=== PATIENT | female | born 1970 | race Caucasian/White ===

== ENCOUNTER 2018-04-19 16:14 | Emergency (ER) | payer OTHER ==
[2018-04-19] MEDS: ARIPiprazole 10 MG TAB PO (17:45)
[2018-04-19] MEDS: traZODone 50 MG TAB PO (17:45)
[2018-04-19] MEDS: LevoFLOXacin 750 MG TABLET PO (17:52)
[2018-04-19] MEDS: KETOROLAC TROMETHAMINE 10 MG TAB PO (17:52)
[2018-04-19] MEDS: CYCLOBENZAPRINE 10 MG TAB PO (17:52)
== END 2018-04-19 18:05 | disposition home or self-care (01) ==
LOC: M ED 16:14
DX: J06.9 Acute upper respiratory infection, unspecified (principal); F31.9 Bipolar disorder, unspecified; M54.5 Low back pain; I10 Essential (primary) hypertension; J44.9 Chronic obstructive pulmonary disease, unspecified; F41.9 Anxiety disorder, unspecified; M19.90 Unspecified osteoarthritis, unspecified site; F17.200 Nicotine dependence, unspecified, uncomplicated; Z88.0 Allergy status to penicillin; Z88.8 Allergy status to other drugs, medicaments and biological substances; Z87.01 Personal history of pneumonia (recurrent); Z91.018 Allergy to other foods; Z79.899 Other long term (current) drug therapy; Z79.52 Long term (current) use of systemic steroids
CPT/HCPCS: 99283

== ENCOUNTER 2018-07-03 11:35 | Emergency (ER) | payer OTHER ==
[2018-07-03] MEDS: ONDANSETRON 4MG/2ML VIAL (J2405) IV (12:25)
[2018-07-03] MEDS: KETOROLAC 60 MG/2 ML VIAL (J1885) IM ×2 (12:27→12:49)
[2018-07-03] MEDS: KETOROLAC 30 MG/ML VIAL (J1885) IV (12:29)
[2018-07-03 12:32] LABS: BASO # 0.1 10^3/uL (0.0-0.2); BASO % 0.7 % (0.0-1.0); EOS # 0.1 10^3/uL (0.0-0.50); EOS % 1.5 % (0.0-3.0); HEMOGLOBIN 13.6 g/dl (12.0-15.5); IMMATURE GRANULOCYTE % 0.5 % (0-3.0); LYMPH # 2.4 10^3/uL (1.5-4.5); LYMPH % 28.3 % (24.0-44.0); MEAN CORPUSCULAR HEMOGLOBIN 30.6 pg (27.0-33.0); MEAN CORPUSCULAR HGB CONC 33.2 g/dl (32.0-36.5); MEAN CORPUSCULAR VOLUME 92.1 fl (80.0-96.0); MONO # 0.4 10^3/uL (0.0-0.8); MONO % 4.4 % (0.0-5.0); NEUTROPHILS # 5.5 10^3/uL (1.8-7.7); NEUTROPHILS % 64.6 % (36.0-66.0); PLATELET COUNT, AUTOMATED 262 10^3/uL (150-450); RED BLOOD COUNT 4.45 10^6/uL (4.00-5.40); RED CELL DISTRIBUTION WIDTH 13.1 % (11.5-14.5); WHITE BLOOD COUNT 8.5 10^3/uL (4.0-10.0)
[2018-07-03 12:37] LABS: KETONE, URINE AUTO RFX NEGATIVE (NEGATIVE); LEUKOCYTE ESTERASE UR AUTO RFX NEGATIVE (NEGATIVE); MUCUS, URINE RFX SMALL (NEGATIVE); NITRITE, URINE AUTO RFX NEGATIVE (NEGATIVE); RBC, URINE AUTO RFX 2 /HPF (0-3); SPECIFIC GRAVITY UR AUTO RFX 1.005 (1.002-1.035); SQUAM EPITHELIAL CELL UR AURFX 0 /HPF (0-6); WBC, URINE AUTO RFX 1 /HPF (0-3)
[2018-07-03 13:01] LABS: ALBUMIN 3.4 GM/DL (3.2-5.2); ALBUMIN/GLOBULIN RATIO 0.92 (1.00-1.93); ALKALINE PHOSPHATASE 102 U/L (45-117); ALT/SGPT 20 U/L (12-78); ANION GAP 7 MEQ/L (8-16); AST/SGOT 13 U/L (7-37); BILIRUBIN,DIRECT < 0.1 MG/DL (0.0-0.2); BILIRUBIN,TOTAL 0.1 MG/DL (0.2-1.0); BLOOD UREA NITROGEN 5 MG/DL (7-18); CALCIUM LEVEL 8.6 MG/DL (8.5-10.1); CARBON DIOXIDE LEVEL 29 MEQ/L (21-32); CHLORIDE LEVEL 106 MEQ/L (98-107); CREATININE FOR GFR 0.61 MG/DL (0.55-1.30); GLOMERULAR FILTRATION RATE > 60.0 (>58); GLUCOSE, FASTING 96 MG/DL (70-100); POTASSIUM SERUM 3.9 MEQ/L (3.5-5.1); SODIUM LEVEL 142 MEQ/L (136-145); TOTAL PROTEIN 7.1 GM/DL (6.4-8.2)
== END 2018-07-03 13:57 | disposition home or self-care (01) ==
LOC: M ED 11:35
DX: I10 Essential (primary) hypertension (principal); M54.32 Sciatica, left side; R10.31 Right lower quadrant pain; R10.32 Left lower quadrant pain; F17.200 Nicotine dependence, unspecified, uncomplicated; Z79.890 Hormone replacement therapy; Z79.899 Other long term (current) drug therapy; Z88.0 Allergy status to penicillin; Z91.018 Allergy to other foods
CPT/HCPCS: J2405

== ENCOUNTER 2018-07-24 20:37 | Emergency (ER) | payer OTHER ==
[~2018-07-24] VITALS: Ht 162.6 cm; Wt 53.2 kg
[~2018-07-24 20:37] MED LIST: ABIL10TA9 PO; ARIP1TAB; BUTA-198; CYCL10TA PO; DIVA250T67; DOXY100C; ESTR3TA; GG/CODEINE; HYDR-3363; IBUP80TA PO; IPRATROPIUM/; KETO10TAB PO; LEVA750T7 PO; METH20TA29; METO1TAB87; ONDA8TAB8 PO; PRED20TA; ROPI0.5T; TRAM50TA2; TRAZ-160; TRAZ-160 PO; VENTAER
[2018-07-24] MEDS ORDERED: KETOROLAC 30 MG/ML VIAL (J1885) IV ONE (21:30)
[2018-07-24] MEDS ORDERED: NS 1,000 ML IV ONE (21:30)
[2018-07-24 21:36] LABS: HEMATOCRIT 40.2 % (36.0-47.0); HEMOGLOBIN 13.7 g/dl (12.0-15.5); MEAN CORPUSCULAR HEMOGLOBIN 30.2 pg (27.0-33.0); MEAN CORPUSCULAR HGB CONC 34.1 g/dl (32.0-36.5); MEAN CORPUSCULAR VOLUME 88.5 fl (80.0-96.0); PLATELET COUNT, AUTOMATED 311 10^3/uL (150-450); RED BLOOD COUNT 4.54 10^6/uL (4.00-5.40)
[2018-07-24 21:40] LABS: WHITE BLOOD COUNT 11.7 10^3/uL (4.0-10.0)
[2018-07-24 21:44] LABS: BLOOD UREA NITROGEN 8 MG/DL (7-18); CALCIUM LEVEL 8.9 MG/DL (8.5-10.1); CARBON DIOXIDE LEVEL 25 MEQ/L (21-32); CHLORIDE LEVEL 109 MEQ/L (98-107); CREATININE FOR GFR 0.52 MG/DL (0.55-1.30); GLOMERULAR FILTRATION RATE > 60.0 (>58); GLUCOSE, FASTING 105 MG/DL (70-100); POTASSIUM SERUM 3.9 MEQ/L (3.5-5.1); SODIUM LEVEL 141 MEQ/L (136-145)
[2018-07-24] MEDS ORDERED: METOCLOPRAMIDE INJ 10MG/2ML VIAL (J2765) IV ONE (22:00)
[2018-07-24 22:03] LABS: BASOPHILS 1 % (0-4); EOSINOPHILS 2 % (0-5); LYMPHOCYTES 49 % (16-52); MONOCYTES 5 % (0-8); NEUTROPHILS 43 % (35-75); PLATELET ESTIMATE NORMAL (NORMAL)
--- NOTE | 2018-07-24 22:52 | REPVR ---
EXAM: CT Head Without Contrast EXAM DATE/TIME: 07/24/2018 10:18 PM CLINICAL HISTORY: 47 years old, female; Pain; Headache; Headache not specified; Additional info: Intractable headache TECHNIQUE: Axial computed tomography images of the head/brain without contrast. All CT scans at this facility use at least one of these dose optimization techniques: automated exposure control; mA and/or kV adjustment per patient size (includes targeted exams where dose is matched to clinical indication); or iterative reconstruction. COMPARISON: No relevant prior studies available. FINDINGS: Brain: Normal. No hemorrhage. No significant white matter disease. No edema. Ventricles: Normal. No ventriculomegaly. Bones/joints: Normal. No acute fracture. Sinuses: Minimal ethmoid sinus mucosal thickening. Mastoid air cells: Normal as visualized. No mastoid effusion. Soft tissues: Normal. IMPRESSION: 1. Minimal ethmoid sinus disease. 2. Otherwise negative noncontrast head CT. Electronically signed by: Balbir Lion On 07/24/2018 22:52:12 PM
[2018-07-24] MEDS ORDERED: diphenhydrAMINE INJ 50MG/ML VIAL (J1200) IV STA (23:12)
[2018-07-24] MEDS ORDERED: ZOFR4TAB14 PO (23:16)
[2018-07-24] MEDS ORDERED: KETO10TAB PO (23:16)
[2018-07-24 23:37] VITALS: BP 148/76
== END 2018-07-24 23:40 | disposition home or self-care (01) ==
LOC: M ED 20:37
DX: G43.909 Migraine, unspecified, not intractable, without status migrainosus (principal); I10 Essential (primary) hypertension; J44.9 Chronic obstructive pulmonary disease, unspecified; F41.9 Anxiety disorder, unspecified; F31.9 Bipolar disorder, unspecified; Z79.899 Other long term (current) drug therapy; Z88.0 Allergy status to penicillin; Z91.018 Allergy to other foods
CPT/HCPCS: 70450; 80048; 85025; 96361; 96374; 96375; 99284; J1200; J1885; J2765

== ENCOUNTER 2018-07-27 14:47 | Emergency (ER) | payer OTHER ==
[~2018-07-27] VITALS: Ht 162.6 cm; Wt 53.2 kg
[~2018-07-27 14:47] MED LIST changes: +ZOFR4TAB14 PO
[2018-07-27] MEDS ORDERED: methylPREDNISolone INJ 125 MG/2 ML VIAL (J2930) IV ONE (16:30)
[2018-07-27] MEDS ORDERED: KETOROLAC 30 MG/ML VIAL (J1885) IV ONE (16:30)
[2018-07-27] MEDS ORDERED: METOCLOPRAMIDE INJ 10MG/2ML VIAL (J2765) IV ONE (16:30)
[2018-07-27] MEDS ORDERED: diphenhydrAMINE INJ 50MG/ML VIAL (J1200) IV ONE (16:30)
[2018-07-27] MEDS ORDERED: NS 1,000 ML IV ONE (16:30)
[2018-07-27 16:43] LABS: BASO # 0.1 10^3/uL (0.0-0.2); BASO % 0.8 % (0.0-1.0); EOS # 0.2 10^3/uL (0.0-0.50); EOS % 1.9 % (0.0-3.0); HEMATOCRIT 40.3 % (36.0-47.0); HEMOGLOBIN 13.6 g/dl (12.0-15.5); LYMPH # 3.2 10^3/uL (1.5-4.5); LYMPH % 36.8 % (24.0-44.0); MEAN CORPUSCULAR HEMOGLOBIN 30.6 pg (27.0-33.0); MEAN CORPUSCULAR HGB CONC 33.7 g/dl (32.0-36.5); MEAN CORPUSCULAR VOLUME 90.6 fl (80.0-96.0); MONO # 0.5 10^3/uL (0.0-0.8); MONO % 5.3 % (0.0-5.0); NEUTROPHILS # 4.8 10^3/uL (1.8-7.7); NEUTROPHILS % 54.9 % (36.0-66.0); PLATELET COUNT, AUTOMATED 280 10^3/uL (150-450); RED BLOOD COUNT 4.45 10^6/uL (4.00-5.40); WHITE BLOOD COUNT 8.8 10^3/uL (4.0-10.0)
[2018-07-27 17:11] LABS: BLOOD UREA NITROGEN 4 MG/DL (7-18); CALCIUM LEVEL 9.2 MG/DL (8.5-10.1); CARBON DIOXIDE LEVEL 30 MEQ/L (21-32); CHLORIDE LEVEL 109 MEQ/L (98-107); CREATININE FOR GFR 0.55 MG/DL (0.55-1.30); GLOMERULAR FILTRATION RATE > 60.0 (>58); GLUCOSE, FASTING 92 MG/DL (70-100); POTASSIUM SERUM 4.3 MEQ/L (3.5-5.1); SODIUM LEVEL 144 MEQ/L (136-145)
[2018-07-27 17:48] VITALS: BP 178/98
== END 2018-07-27 17:53 | disposition home or self-care (01) ==
LOC: M ED 14:47
DX: G43.909 Migraine, unspecified, not intractable, without status migrainosus (principal); J44.9 Chronic obstructive pulmonary disease, unspecified; I10 Essential (primary) hypertension; F31.9 Bipolar disorder, unspecified; F41.9 Anxiety disorder, unspecified; Z79.899 Other long term (current) drug therapy; Z88.0 Allergy status to penicillin; F17.210 Nicotine dependence, cigarettes, uncomplicated
CPT/HCPCS: 80048; 85025; 96374; 96375; 99284; J1200; J1885; J2765; J2930

== ENCOUNTER → 2021-11-19 | Outpatient (REF) ==
[~2021-11-19] MED LIST changes: +ARIP10TA32; -ARIP1TAB; +CYCL-707 PO; -CYCL10TA PO; -DOXY100C; +DOXY100C3; -ROPI0.5T; +ROPI0.5T3; -TRAZ-160; -TRAZ-160 PO; +TRAZ-252; +TRAZ-252 PO
== END ==
LOC: M PLALAB 10:56
PROVIDERS: ATTEND Internal Medicine
DX: M54.50 Low back pain, unspecified (principal); M51.37 Other intervertebral disc degeneration, lumbosacral region; M51.36 Other intervertebral disc degeneration, lumbar region; M85.9 Disorder of bone density and structure, unspecified

== ENCOUNTER → 2023-04-24 | Outpatient (CLI) | payer OTHER ==
[~2023-04-24] MED LIST changes: +AJOV225I SC; +ARIP1TAB6 PO; +B-650TAB2 PO; +DEPA1TAB3 PO; +FAMO20TA5; +FURO20TA2; +LACT10SO3; +LEVO330T3 PO; +LYRI150C PO; +METH20TA31; +POTA1TAB23; +PREG25CA PO; -ROPI0.5T3; +ROPI0.5T33; +TOPI-254; +TRAZ-257; +XIFA550T
== END ==
LOC: M SLEEP 20:00
PROVIDERS: ATTEND Nurse Practitioner Family
DX: G47.33 Obstructive sleep apnea (adult) (pediatric) (principal)

== ENCOUNTER 2023-07-15 07:56 | Day surgery (SDC) | payer OTHER ==
[~2023-07-15] VITALS: Ht 162.6 cm; Wt 59.0 kg
[~2023-07-15 07:56] MED LIST changes: +AIMO70IN2 SC; +AMLO1TAB24 PO; -ARIP10TA32; +ARIP10TA32 PO; +BACL1TAB9 PO; -BUTA-198; +BUTA-198 PO; +D-50TAB PO; +DIVA250T67 PO; +DULO1CAP5 PO; +FERR28TA PO; +FOLI800C PO; -FURO20TA2; +FURO20TA2 PO; -HYDR-3363; +HYDR-3363 PO; -LACT10SO3; +LACT10SO3 PO; +LEVO330T6 PO; +METH20TA29 PO; +METO1TAB32 PO; -METO1TAB87; +METO1TAB87 PO; +NS 1,000 ML IV ONE; +POTA10CA60 PO; +PREG150C2 PO; +PREG25CA3 PO; +PREM.6256 PO; +PROBCAP14 PO; +PYRI100L PO; -ROPI0.5T33; +ROPI0.5T33 PO; +TERB250T90 PO; +TOPI-21 PO; -TOPI-254; +TOPI25TA10 PO; -TRAZ-257; +TRAZ-257 PO; +XIFA550T PO
[2023-07-15] MEDS ORDERED: propofoL 200 MG/20 ML VIAL As Ordered ONE ×4 (08:56→09:53)
[2023-07-15] MEDS ORDERED: LIDOCAINE 2% 100MG/5ML SDV (FOR ANES.) As Ordered ONE (08:56)
[2023-07-15] MEDS ORDERED: GLYCOPYRROLATE INJ 0.2 MG/ML 2 ML VIAL As Ordered ONE (08:56)
[2023-07-15] MEDS ORDERED: GLUCAGON INJ 1MG VIAL As Ordered ONE (09:16)
[2023-07-15] MEDS ORDERED: LABETALOL 100MG/20ML VIAL As Ordered ONE (09:50)
[2023-07-15 10:14] VITALS: BP 134/63; O2SAT 100
== END 2023-07-15 10:33 | disposition home or self-care (01) ==
LOC: M OPP 07:56
PROVIDERS: ATTEND Internal Medicine Gastroenterology
DX: C18.2 Malignant neoplasm of ascending colon (principal); D12.4 Benign neoplasm of descending colon; D12.8 Benign neoplasm of rectum; K63.5 Polyp of colon; K59.00 Constipation, unspecified; Z79.2 Long term (current) use of antibiotics; Z79.818 Long term (current) use of other agents affecting estrogen receptors and estrogen levels; Z79.899 Other long term (current) drug therapy; Z88.0 Allergy status to penicillin; Z91.048 Other nonmedicinal substance allergy status
CPT/HCPCS: 45385; 88305; J1610; J1920

== ENCOUNTER 2023-07-18 13:21 | Emergency (ER) | payer OTHER ==
[~2023-07-18] VITALS: Ht 162.6 cm; Wt 68.3 kg
[~2023-07-18 13:21] MED LIST changes: -NS 1,000 ML IV ONE
[2023-07-18 13:53] LABS: BASO # 0.1 10^3/uL (0.0-0.2); BASO % 0.6 % (0.0-1.0); EOS # 0.4 10^3/uL (0.0-0.5); EOS % 4.9 % (0.0-3.0); HEMATOCRIT 33.9 % (36.0-47.0); HEMOGLOBIN 11.3 g/dl (12.0-15.5); LYMPH # 3.1 10^3/uL (1.5-5.0); LYMPH % 34.7 % (24.0-44.0); MEAN CORPUSCULAR HEMOGLOBIN 30.2 pg (27.0-33.0); MEAN CORPUSCULAR HGB CONC 33.3 g/dl (32.0-36.5); MEAN CORPUSCULAR VOLUME 90.6 fl (80.0-96.0); MONO # 0.7 10^3/uL (0.0-0.8); MONO % 7.3 % (2.0-8.0); NEUTROPHILS # 4.7 10^3/uL (1.5-8.5); NEUTROPHILS % 52.3 % (36.0-66.0); PLATELET COUNT, AUTOMATED 222 10^3/uL (150-450); RED BLOOD COUNT 3.74 10^6/uL (4.00-5.40); WHITE BLOOD COUNT 8.9 10^3/uL (4.0-10.0)
[2023-07-18 14:05] LABS: INR 1.08; PROTHROMBIN TIME 13.7 SECONDS (12.5-14.5)
[2023-07-18 14:22] LABS: LIPASE 31 U/L (12-53)
[2023-07-18 14:24] LABS: ALBUMIN 3.3 G/DL (3.2-5.2); ALKALINE PHOSPHATASE 78 U/L (46-116); ALT/SGPT 15 U/L (7.0-40); AMYLASE 46 U/L (30-118); AST/SGOT 11 U/L (<34); BILIRUBIN,DIRECT < 0.1 MG/DL (<0.4); BILIRUBIN,TOTAL < 0.2 MG/DL (0.3-1.2); BLOOD UREA NITROGEN 17 MG/DL (9-23); CARBON DIOXIDE LEVEL 29 MMOL/L (20-31); CHLORIDE LEVEL 109 MMOL/L (98-107); CREATININE FOR GFR 0.75 MG/DL (0.55-1.30); GLOMERULAR FILTRATION RATE > 60.0 (>51); GLUCOSE, FASTING 85 MG/DL (60-100); POTASSIUM SERUM 3.8 MMOL/L (3.5-5.1); SODIUM LEVEL 141 MMOL/L (136-145); TOTAL PROTEIN 6.9 G/DL (5.7-8.2)
[2023-07-18] MEDS ORDERED: ISOVUE-370 76% 100ML VIAL As Ordered ONE (16:18)
[2023-07-18 18:50] VITALS: BP 160/91; TEMP 97.7; O2SAT 100
== END 2023-07-18 19:08 | disposition home or self-care (01) ==
LOC: M ED 13:21
DX: K92.2 Gastrointestinal hemorrhage, unspecified (principal); I10 Essential (primary) hypertension; F17.200 Nicotine dependence, unspecified, uncomplicated; Z88.0 Allergy status to penicillin; Z91.018 Allergy to other foods; Z79.899 Other long term (current) drug therapy; Z79.891 Long term (current) use of opiate analgesic; Z79.83 Long term (current) use of bisphosphonates
CPT/HCPCS: 36415; 70450; 74174; 80048; 80076; 82150; 83605; 83690; 85025; 85610; 85730; 86850; 86900; 86901; 99283; Q9967

== ENCOUNTER → 2023-07-30 | Outpatient (CLI) | payer OTHER ==
[~2023-07-30] MED LIST changes: +CYAN100049 PO; +GASTROGRAFIN SOLUTION 30ML As Ordered ONE; +ISOVUE-370 76% 100ML VIAL As Ordered ONE; +VITA100C8; +VITA500C3 PO
== END ==
LOC: M RAD 13:35
PROVIDERS: ATTEND Surgery
DX: C18.2 Malignant neoplasm of ascending colon (principal)
CPT/HCPCS: 74177; Q9963; Q9967

== ENCOUNTER 2023-08-20 06:05 | Inpatient (IN) | payer OTHER ==
[2023-08-20] VITALS (7 sets, daily range): BP systolic 148–153; BP diastolic 82–86; TEMP 96.6–98.2; O2SAT 97–99
[~2023-08-20] VITALS: Ht 162.6 cm; Wt 65.0 kg
[~2023-08-20 06:05] MED LIST changes: +ALVIMOPAN 12 MG CAPSULE (ENTEREG) PO ONE; +BUTACAP78 PO; +CelecoXIB 400 MG CAP PO ONE; +FAMO20TA PO; -GASTROGRAFIN SOLUTION 30ML As Ordered ONE; +HEPARIN SOD (PORCINE) 5000UNITS/ML 1ML VIAL/SYRINGE SQ ONE; +IRON1TAB2 PO; -ISOVUE-370 76% 100ML VIAL As Ordered ONE; +NICOINH IN; +PYRI50TA40 PO; +RITA20TA PO; +VITA1CHW3 PO; +VITA200C39 PO; +ceFAZolin SOD 2 GM in IV 1 EA IV ONE; +metroNIDAZOLE 500 MG in IV 1 EA IV ONE
[2023-08-20] MEDS ORDERED: LR 1,000 ML IV SCH ×2 (06:35→14:55)
[2023-08-20] MEDS ORDERED: LIDOCAINE 1% SDV 30ML VIAL As Ordered ONE (11:19)
[2023-08-20] MEDS ORDERED: ONDANSETRON 4MG 2ML VIAL As Ordered ONE (11:50)
[2023-08-20] MEDS ORDERED: SUGAMMADEX SODIUM 500 MG/5 ML VIAL (BRIDION) As Ordered ONE (11:50)
[2023-08-20] MEDS ORDERED: KETOROLAC 60MG 2ML VIAL As Ordered ONE (11:50)
[2023-08-20] MEDS ORDERED: propofoL 200 MG/20 ML VIAL As Ordered ONE (11:50)
[2023-08-20] MEDS ORDERED: MIDAZOLAM INJ 2MG/2ML VIAL As Ordered ONE (11:50)
[2023-08-20] MEDS ORDERED: LIDOCAINE 2% 100MG/5ML SDV (FOR ANES.) As Ordered ONE (11:50)
[2023-08-20] MEDS ORDERED: ROCURONIUM BROMIDE 50MG/5ML VIAL As Ordered ONE ×2 (11:50→12:10)
[2023-08-20] MEDS ORDERED: fentaNYL 250 MCG/5 ML INJECTION As Ordered ONE (11:50)
[2023-08-20] MEDS ORDERED: ACETAMINOPHEN 1000MG 100ML IV BAG As Ordered ONE (12:07)
[2023-08-20] MEDS ORDERED: INDOCYANINE GREEN 25MG VIAL (IC-GREEN) As Ordered ONE (13:14)
[2023-08-20] MEDS ORDERED: ONDANSETRON 4MG 2ML VIAL IV PRN ×2 (14:50→14:55)
[2023-08-20] MEDS ORDERED: ACETAMINOPHEN TAB 650MG DOSE (2X325MG) PO PRN (14:50)
[2023-08-20] MEDS ORDERED: FUROSEMIDE 20 MG TAB PO PRN (14:50)
[2023-08-20] MEDS ORDERED: NORCO, ANEXSIA 5/325MG TABLET (HYDROcodone/ACETAMINOPHEN) PO PRN (14:50)
[2023-08-20] MEDS ORDERED: BACLOFEN 10 MG TAB PO PRN (14:50)
[2023-08-20] MEDS ORDERED: MORPHINE 4 MG/ML 1ML VIAL IV PRN (14:50)
[2023-08-20] MEDS ORDERED: oxyCODONE 5MG TAB PO PRN (14:55)
[2023-08-20] MEDS ORDERED: fentaNYL 100 MCG/2 ML INJECTION IV PRN (14:55)
[2023-08-20] MEDS: HYDROMORPHONE HCL 0.5 MG/ 0.5 ML SYRINGE IV PRN ×2 (15:26→15:31)
[2023-08-20] MEDS: LR 1,000 ML IV SCH ×2 (16:12→22:50)
[2023-08-20] MEDS: KETOROLAC 30 MG/ML 1ML VIAL IV SCH ×2 (18:16→23:38)
[2023-08-20] MEDS: rifAXIMin 550 MG TAB (XIFAXAN) PO SCH (19:49)
[2023-08-20] MEDS: TOPIRAMATE (TopAMAX) 25 MG TAB PO SCH (19:49)
[2023-08-20] MEDS ORDERED: traZODone 100 MG TAB PO SCH (21:00)
[2023-08-20] MEDS ORDERED: rOPINIRole 1MG TAB PO SCH (21:00)
[2023-08-20] MEDS ORDERED: FAMOTIDINE 20 MG TAB PO SCH (21:00)
[2023-08-21] MEDS: LR 1,000 ML IV SCH ×2 (00:22→08:46)
[2023-08-21 01:30] VITALS: BP 145/83; TEMP 98.1; O2SAT 96
[2023-08-21 05:30] VITALS: BP 129/71; TEMP 97.7; O2SAT 92
[2023-08-21] MEDS: KETOROLAC 30 MG/ML 1ML VIAL IV SCH ×2 (06:18→11:04)
[2023-08-21] MEDS: METHYLPHENIDATE 5 MG TAB PO SCH ×2 (06:57→14:09)
[2023-08-21 07:11] LABS: BASO % 0.5 % (0.0-1.0); EOS # 0.2 10^3/uL (0.0-0.5); HEMATOCRIT 34.8 % (36.0-47.0); HEMOGLOBIN 11.8 g/dl (12.0-15.5); LYMPH # 2.8 10^3/uL (1.5-5.0); LYMPH % 34.8 % (24.0-44.0); MEAN CORPUSCULAR HEMOGLOBIN 30.3 pg (27.0-33.0); MEAN CORPUSCULAR HGB CONC 33.9 g/dl (32.0-36.5); MEAN CORPUSCULAR VOLUME 89.2 fl (80.0-96.0); MONO # 0.6 10^3/uL (0.0-0.8); MONO % 7.7 % (2.0-8.0); NEUTROPHILS # 4.5 10^3/uL (1.5-8.5); NEUTROPHILS % 54.8 % (36.0-66.0); PLATELET COUNT, AUTOMATED 172 10^3/uL (150-450); WHITE BLOOD COUNT 8.2 10^3/uL (4.0-10.0)
[2023-08-21 07:43] LABS: BLOOD UREA NITROGEN 7 MG/DL (9-23); CARBON DIOXIDE LEVEL 28 MMOL/L (20-31); CHLORIDE LEVEL 111 MMOL/L (98-107); CREATININE FOR GFR 0.63 MG/DL (0.55-1.30); GLOMERULAR FILTRATION RATE > 60.0 (>51); GLUCOSE, FASTING 86 MG/DL (60-100); POTASSIUM SERUM 3.6 MMOL/L (3.5-5.1); SODIUM LEVEL 143 MMOL/L (136-145)
[2023-08-21 07:56] VITALS: BP 135/75; TEMP 98.1; O2SAT 97
[2023-08-21] MEDS: rifAXIMin 550 MG TAB (XIFAXAN) PO SCH (08:46)
[2023-08-21] MEDS: TOPIRAMATE (TopAMAX) 25 MG TAB PO SCH (08:48)
[2023-08-21] MEDS ORDERED: CYANOCOBALAMIN 500 MCG TAB PO SCH (09:00)
[2023-08-21] MEDS ORDERED: PREGABALIN 75 MG CAP(LYRICA) PO SCH (09:00)
[2023-08-21] MEDS ORDERED: ALVIMOPAN 12 MG CAPSULE (ENTEREG) PO SCH (09:00)
[2023-08-21] MEDS ORDERED: POTASSIUM CHLORIDE 10MEQ SR TABLET PO PRN (09:00)
[2023-08-21] MEDS ORDERED: PYRIDOXINE 50 MG TAB PO SCH (09:00)
[2023-08-21] MEDS ORDERED: DULoxetine 30MG CAPSULE (CYMBALTA) PO SCH (09:00)
[2023-08-21] MEDS ORDERED: METOPROLOL SUCC *XL* 25MG TAB (TopROL *XL*) PO SCH (09:00)
[2023-08-21] MEDS ORDERED: DIVALPROEX 250MG TAB PO SCH (09:00)
[2023-08-21] MEDS ORDERED: PREGABALIN 25 MG CAP (LYRICA) PO SCH (09:00)
[2023-08-21] MEDS ORDERED: amLODIPine 5 MG TAB PO SCH (09:00)
[2023-08-21] MEDS ORDERED: ARIPiprazole 10 MG TAB PO SCH (09:00)
[2023-08-21] MEDS ORDERED: ENOXAPARIN 40MG/0.4ML SYRINGE (J1650 PER 10MG) SC SCH (09:00)
[2023-08-21] MEDS: NORCO, ANEXSIA 5/325MG TABLET (HYDROcodone/ACETAMINOPHEN) PO PRN ×2 (09:57→14:44)
[2023-08-21] MEDS: levOCARNitine ORAL SOLUTION 1,000MG/10ML (CARNITOR) PO SCH ×2 (09:58→12:43)
[2023-08-21 14:00] VITALS: BP 158/86; TEMP 98.6; O2SAT 92
[2023-08-21] MEDS ORDERED: HYDR-3713 PO ×2 (15:49→16:08)
== END 2023-08-21 17:25 | disposition home or self-care (01) | DRG 240 ==
LOC: M OR 06:05 → M MS5PR 16:06
PROVIDERS: ADMIT Surgery; ATTEND Surgery
PROC: 8E0W4CZ Robotic Assisted Procedure of Trunk Region, Percutaneous Endoscopic Approach (ICD-10-PCS; 2023-08-20)
PROC: 0DBH4ZX Excision of Cecum, Percutaneous Endoscopic Approach, Diagnostic (ICD-10-PCS; principal; 2023-08-20 07:30)
DX: C18.0 Malignant neoplasm of cecum (principal)

== ENCOUNTER → 2024-03-15 | Outpatient (CLI) | payer MEDICARE, BC ==
[~2024-03-15] MED LIST changes: -ALVIMOPAN 12 MG CAPSULE (ENTEREG) PO ONE; -CelecoXIB 400 MG CAP PO ONE; -HEPARIN SOD (PORCINE) 5000UNITS/ML 1ML VIAL/SYRINGE SQ ONE; +HYDR-3713 PO; +ONDA-284 PO; -ONDA8TAB8 PO; -POTA10CA60 PO; +POTA10CA70 PO; +PROHANCE 279.3MG/ML 15ML VIAL As Ordered ONE; +PROP20TA72 PO; -ceFAZolin SOD 2 GM in IV 1 EA IV ONE; -metroNIDAZOLE 500 MG in IV 1 EA IV ONE
== END ==
LOC: M RAD 15:36
PROVIDERS: ATTEND Internal Medicine Medical Oncology
DX: R10.9 Unspecified abdominal pain (principal); C18.9 Malignant neoplasm of colon, unspecified
CPT/HCPCS: 74183; A9576

== ENCOUNTER → 2024-03-17 | Outpatient (CLI) | payer MEDICARE, BC ==
[~2024-03-17] MED LIST changes: +VITA200C21 PO; -VITA200C39 PO
== END ==
LOC: M RAD 10:37
PROVIDERS: ATTEND Internal Medicine Medical Oncology
DX: C18.0 Malignant neoplasm of cecum (principal); R10.9 Unspecified abdominal pain
CPT/HCPCS: 72197; A9576

== ENCOUNTER → 2024-04-21 | Day surgery (SDC) | payer MEDICARE, BC ==
[~2024-04-21] VITALS: Ht 162.6 cm; Wt 67.2 kg
[~2024-04-21] MED LIST changes: -ARIP10TA32 PO; +ARIP10TA63 PO; +DULO1CAP6 PO; +FAMO1TAB11 PO; +FINA5TAB2 PO; +FLUT1BLS8 INH; +GLYCOPYRROLATE INJ 0.2 MG/ML 2 ML VIAL As Ordered ONE; +LIDOCAINE 2% 100MG/5ML SDV (FOR ANES.) As Ordered ONE; +NICO10SP; +NS 1,000 ML IV ONE; -PROHANCE 279.3MG/ML 15ML VIAL As Ordered ONE; +fentaNYL 100 MCG/2 ML INJECTION As Ordered ONE; +propofoL 500 MG/50 ML VIAL As Ordered ONE
[2024-04-21 14:00] VITALS: TEMP 97
[2024-04-21 14:16] VITALS: BP 107/57; O2SAT 99
== END | disposition home or self-care (01) ==
LOC: M OPP 12:10
PROVIDERS: ATTEND Internal Medicine Gastroenterology
DX: Z85.038 Personal history of other malignant neoplasm of large intestine (principal); K57.30 Diverticulosis of large intestine without perforation or abscess without bleeding; K64.8 Other hemorrhoids; Z98.0 Intestinal bypass and anastomosis status; K62.89 Other specified diseases of anus and rectum; R12 Heartburn; R13.10 Dysphagia, unspecified; I10 Essential (primary) hypertension; K21.9 Gastro-esophageal reflux disease without esophagitis; D50.9 Iron deficiency anemia, unspecified; F41.9 Anxiety disorder, unspecified; F31.9 Bipolar disorder, unspecified; G43.909 Migraine, unspecified, not intractable, without status migrainosus; J44.9 Chronic obstructive pulmonary disease, unspecified; F17.200 Nicotine dependence, unspecified, uncomplicated; G47.33 Obstructive sleep apnea (adult) (pediatric); Z99.89 Dependence on other enabling machines and devices; Z88.0 Allergy status to penicillin; Z91.018 Allergy to other foods; Z79.51 Long term (current) use of inhaled steroids; Z79.899 Other long term (current) drug therapy
CPT/HCPCS: 43239; 45380; 88305; J1596; J3010

== ENCOUNTER → 2024-06-06 | Outpatient (CLI) | payer MEDICARE, BC ==
[~2024-06-06] MED LIST changes: +AZIT-12 PO; +E-Z-GAS II EFFERVESCENT PACKET (SODIUM BICARB./CITRIC ACID/SIMETHICONE) As Ordered ONE; +E-Z-HD 98% w/w 340GM SUSP BTL As Ordered ONE; +E-Z-PAQUE 96% w/w SUSP 176GM BTL As Ordered ONE; -GLYCOPYRROLATE INJ 0.2 MG/ML 2 ML VIAL As Ordered ONE; -LACT10SO3 PO; +LACT10SO94 PO; -LIDOCAINE 2% 100MG/5ML SDV (FOR ANES.) As Ordered ONE; -NS 1,000 ML IV ONE; -fentaNYL 100 MCG/2 ML INJECTION As Ordered ONE; -propofoL 500 MG/50 ML VIAL As Ordered ONE
== END ==
LOC: M RAD 09:44
PROVIDERS: ATTEND Physician Assistant Medical
DX: R13.10 Dysphagia, unspecified (principal); R12 Heartburn

== ENCOUNTER → 2024-08-25 | Outpatient (CLI) | payer MEDICARE, BC ==
[~2024-08-25] MED LIST changes: -E-Z-GAS II EFFERVESCENT PACKET (SODIUM BICARB./CITRIC ACID/SIMETHICONE) As Ordered ONE; -E-Z-HD 98% w/w 340GM SUSP BTL As Ordered ONE; -E-Z-PAQUE 96% w/w SUSP 176GM BTL As Ordered ONE
== END ==
LOC: M RAD 11:26
PROVIDERS: ATTEND Internal Medicine Medical Oncology
DX: C18.9 Malignant neoplasm of colon, unspecified (principal)

== ENCOUNTER → 2024-10-04 | Outpatient (CLI) | payer BC, MEDICARE | LOC: M RAD 13:44 | PROVIDERS: ATTEND Physician Assistant | DX: I87.8 Other specified disorders of veins (principal) ==

== ENCOUNTER → 2025-04-24 | Outpatient (CLI) | payer BC ==
[~2025-04-24] MED LIST changes: +ALBU8.5H INH; +ARIP20TA51 PO; +ASCO500C3 PO; +BOTO10VL IM; +CONS10SO3 PO; +ESTR0.1C5 VG; +ISOVUE-370 76% 100 ML VIAL ONE; +PANT40TA29 PO; -PREG25CA PO; +PREG25CA63 PO; +TOPI-256 PO; -TOPI25TA10 PO; +[UNRECOGNIZED DRUG - CODE]
== END ==
LOC: M PLAIMG 15:07
DX: C18.9 Malignant neoplasm of colon, unspecified (principal); K80.20 Calculus of gallbladder without cholecystitis without obstruction; R93.422 Abnormal radiologic findings on diagnostic imaging of left kidney
CPT/HCPCS: 71260; 74177; Q9967

== ENCOUNTER 2025-05-15 08:03 | Day surgery (SDC) | payer BC ==
[~2025-05-15] VITALS: Ht 162.6 cm; Wt 72.1 kg
[~2025-05-15 08:03] MED LIST changes: -ISOVUE-370 76% 100 ML VIAL ONE; +LINZ145C PO
[2025-05-15] MEDS ORDERED: LIDOCAINE 2% 100 MG/5 ML SDV (FOR ANES.) As Ordered ONE (08:44)
[2025-05-15] MEDS ORDERED: GLUCAGON INJ 1 MG VIAL As Ordered ONE (09:03)
[2025-05-15 09:21] VITALS: TEMP 98.1
[2025-05-15 09:42] VITALS: BP 141/70; O2SAT 97
== END 2025-05-15 09:48 | disposition home or self-care (01) ==
LOC: M OPP 08:03
PROVIDERS: ATTEND Internal Medicine Gastroenterology
DX: D12.2 Benign neoplasm of ascending colon (principal); K57.30 Diverticulosis of large intestine without perforation or abscess without bleeding; K64.8 Other hemorrhoids; Z98.0 Intestinal bypass and anastomosis status; K62.5 Hemorrhage of anus and rectum; Z85.038 Personal history of other malignant neoplasm of large intestine; R93.3 Abnormal findings on diagnostic imaging of other parts of digestive tract; G47.30 Sleep apnea, unspecified; Z88.0 Allergy status to penicillin; Z88.2 Allergy status to sulfonamides; Z91.018 Allergy to other foods; Z79.899 Other long term (current) drug therapy; J44.9 Chronic obstructive pulmonary disease, unspecified; F17.210 Nicotine dependence, cigarettes, uncomplicated
CPT/HCPCS: 45385; 88305; J1610